=== PATIENT | male | born 1960 | race Caucasian/White ===

== ENCOUNTER 2018-01-07 03:19 | Observation (INO) | payer MEDICARE, OTHER ==
[2018-01-07] MEDS ORDERED: Sodium Chloride 0.9% 1,000 ML IV ONE (03:38)
[2018-01-07] MEDS ORDERED: Sodium Chloride 0.9% 10 ML Syringe FLUSH PRN (03:39)
[2018-01-07] MEDS ORDERED: Sodium Chloride 0.9% 2.5 ML Syringe FLUSH PRN (03:39)
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
[2018-01-07 04:14] LABS: CHLORIDE,CL 107 mmol/L (98-107); SODIUM,NA 143 mmol/L (136-148)
[2018-01-07] MEDS ORDERED: Bacitracin Oint 1 GM U/D Packet TOP ONE ×2 (04:33→08:09)
[2018-01-07] MEDS ORDERED: Lactated Ringers 1,000 ML IV SCH ×2 (06:45→07:15)
[2018-01-07] MEDS ORDERED: HYDROmorphone 1 MG/ML Syringe IVPUSH ONE (06:49)
[2018-01-07] MEDS ORDERED: HYDROmorphone 2 MG/ML SDV IVPUSH PRN (07:04)
[2018-01-07] MEDS ORDERED: Ondansetron 4 MG/2 ML SDV IVPUSH PRN (07:04)
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
[2018-01-07] MEDS ORDERED: diphenhydrAMINE 50 MG/ML SDV IVPUSH PRN (08:02)
[2018-01-07] MEDS ORDERED: Calcium Carbonate 500 MG Tab.Chew PO PRN (08:02)
[2018-01-07] MEDS ORDERED: Morphine 2 MG/ML Syringe IVPUSH PRN (08:03)
--- NOTE | 2018-01-07 08:08 | PCM.SN ---
- Free Text/Narrative Note: Patient was given IV dilaudid. States he feels like someone is "grabbing his liver". He is demanding morphine. He states "I had 80% orozco all over my body. I have HAD morphine and I want MORPHINE!" I explained that he said it was an allergy. He said "I was confused." Patient is aware of surroundings, place and self. He is clearer cognitively. Will place dilaudid on allergy list. I cleared his c-spine since he appears less intoxicated. IV morphine written for.
[2018-01-07] MEDS: Cyclobenzaprine 5 MG Tab PO PRN ×2 (08:14→16:32)
[2018-01-07] MEDS ORDERED: Omeprazole 20 MG Cap.CR PO SCH (09:00)
[2018-01-07] MEDS ORDERED: Multivitamin Tab PO SCH (09:00)
[2018-01-07] MEDS: Acetaminophen/HYDROcodone 325-5 MG Tab PO PRN ×2 (12:25→16:31)
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
== END 2018-01-07 17:10 | disposition home or self-care (01) ==
LOC: MW.ED 03:19 → MW.MS 04:04
PROVIDERS: ADMIT Surgery; ATTEND Surgery
DX: S32.019A Unspecified fracture of first lumbar vertebra, initial encounter for closed fracture (principal); S22.059A Unspecified fracture of T5-T6 vertebra, initial encounter for closed fracture; S22.069A Unspecified fracture of T7-T8 vertebra, initial encounter for closed fracture; F10.929 Alcohol use, unspecified with intoxication, unspecified; Y90.7 Blood alcohol level of 200-239 mg/100 ml; F17.210 Nicotine dependence, cigarettes, uncomplicated; K21.9 Gastro-esophageal reflux disease without esophagitis; V49.9XXA Car occupant (driver) (passenger) injured in unspecified traffic accident, initial encounter
CPT/HCPCS: 70450; 70486; 71260; 72125; 72128; 72131; 74177; 80053; 80305; 81001; 83690; 83735; 85025; 85610; 93005; 96361; 96374; 96375; 99285; A9270; G0378; G0480; J1170; J2270; J7040; J7120; 99284